=== PATIENT | female | born 1930 | race Caucasian/White ===

== ENCOUNTER 2017-12-05 10:56 | Inpatient (IN) | payer MEDICARE ==
[~2017-12-05] VITALS: Ht 144.8 cm; Wt 75.5 kg
[~2017-12-05 10:56] MED LIST: ASPI-1265 PO; ATOR20TA PO; ENOX30SY10 SQ; HYDR-3965 PO; NORCO10T PO; POTA8TAB46 PO; PROP10TA10 PO; TRIA1TAB3 PO; [UNRECOGNIZED DRUG - CODE] PO
[2017-12-05] MEDS ORDERED: furosemide 40mg/4ml inj IV ONE (11:05)
[2017-12-05] MEDS ORDERED: ipratropium/albuterol 3ml nebule NEB ONE (11:05)
[2017-12-05] MEDS ORDERED: methylPREDNISolone sod succ 125mg/2ml vial IV ONE (11:05)
[2017-12-05 11:24] LABS: BASOPHILS % (AUTO) 0.4 % (0-1); EOSINOPHILS # (AUTO) 0.2 X10'3 (0-0.9); EOSINOPHILS % (AUTO) 2.5 % (0-6); HEMATOCRIT 34.2 % (35.0-45.0); HEMOGLOBIN 11.5 g/dl (12.0-16.0); LYMPHOCYTES # (AUTO) 1.2 X10'3 (1.1-4.8); LYMPHOCYTES % (AUTO) 14.1 % (21-51); MEAN CORPUSCULAR HEMOGLOBIN 31.4 PG (27.0-31.0); MEAN CORPUSCULAR HGB CONC 33.5 % (33.0-36.5); MEAN CORPUSCULAR VOLUME 93.8 FL (78-98); MEAN PLATELET VOLUME 7.7 FL (7.4-10.4); MONOCYTES # (AUTO) 0.5 X10'3 (0-0.9); MONOCYTES % (AUTO) 5.9 % (2-12); NEUTROPHILS # (AUTO) 6.5 X10'3 (1.8-7.7); NEUTROPHILS % (AUTO) 77.1 % (42-75); PLATELET COUNT 195 X10'3 (140-440); RED BLOOD COUNT 3.64 X10'6 (4.20-5.60); RED CELL DISTRIBUTION WIDTH 12.9 % (11.5-14.5); WHITE BLOOD COUNT 8.4 X10'3 (4.5-11.0)
[2017-12-05 11:33] LABS: PROTHROMBIN TIME 10.2 SECONDS (9.0-12.0)
[2017-12-05 11:39] LABS: ALANINE AMINOTRANSFERASE 14 U/L (12-78); ALBUMIN 3.2 G/DL (3.4-5.0); ALBUMIN/GLOBULIN RATIO 0.8 (1.1-1.5); ALKALINE PHOSPHATASE 94 IU/L (46-116); ANION GAP 6 (8-16); ASPARTATE AMINO TRANSFERASE 19 U/L (10-37); BILIRUBIN,TOTAL 0.3 MG/DL (0.1-1.0); BLOOD UREA NITROGEN 24 MG/DL (7-18); BUN/CREATININE RATIO 18.6 (6.6-38.0); CALCIUM 9.2 MG/DL (8.5-10.1); CHLORIDE 109 MMOL/L (99-107); CREATININE 1.29 MG/DL (0.40-0.90); GLUCOSE 104 MG/DL (70-104); POTASSIUM 4.3 MMOL/L (3.5-5.1); SODIUM 142 MMOL/L (135-145); TOTAL CARBON DIOXIDE 26.6 MMOL/L (24-32); TOTAL PROTEIN 7.2 G/DL (6.4-8.2); eGFR 39 ML/MIN
[2017-12-05] MEDS ORDERED: magnesium hydroxide 30ml (MOM) UD suspension PO PRN (12:00)
[2017-12-05] MEDS ORDERED: acetaminophen 325mg tablet PO PRN (12:00)
[2017-12-05] MEDS ORDERED: nitroGLYCERIN 0.4mg SUBLingual tab SL PRN (12:00)
[2017-12-05] MEDS ORDERED: enoxaparin 100mg/ml syringe SUBCUT SCH (12:00)
[2017-12-05] MEDS ORDERED: ondansetron/PF 4mg/2ml inj IV PRN (12:00)
[2017-12-05] MEDS ORDERED: mag hydrox/Alum hydrox/simeth 30ml oral suspension PO PRN (12:00)
[2017-12-05] MEDS ORDERED: morphine 4 MG/ML inj SYRINge IV PRN ×2 (12:00)
[2017-12-05] MEDS: furosemide 20 MG/2 ML vial IV SCH ×2 (12:05→19:58)
[2017-12-05] MEDS ORDERED: enoxaparin 40mg/0.4ml syringe SQ ONE (12:25)
[2017-12-05] MEDS ORDERED: enoxaparin 30mg/0.3ml syringe SUBCUT ONE (12:25)
[2017-12-05] MEDS ORDERED: POTA99TA21 PO (13:28)
[2017-12-05] MEDS ORDERED: VALS160T30 PO (13:42)
[2017-12-05 14:00] VITALS: BP 158/83
[2017-12-05 14:00] LABS: CHOL/HDL RATIO 2.7 (0.00-4.99); CHOLESTEROL 188 MG/DL (0-200); HDL CHOLESTEROL 69 MG/DL (35-60); LDL CHOLESTEROL 94 MG/DL (50-100); TRIGLYCERIDES 126 MG/DL (20-135)
[2017-12-05 15:00] VITALS: BP 151/56
[2017-12-05] MEDS: HYDROcodone/acetaminophen 5mg/325mg tablet PO PRN (17:32)
[2017-12-05 19:00] VITALS: BP 151/55
[2017-12-05] MEDS: metoprolol tartrate 25mg tablet PO SCH (19:58)
[2017-12-05] MEDS ORDERED: propranolol 10mg tablet PO SCH (21:00)
[2017-12-05] MEDS ORDERED: atorvastatin 20mg tablet PO SCH (21:00)
[2017-12-05 23:00] VITALS: BP 94/51
[2017-12-06 03:00] VITALS: BP 128/47
[2017-12-06 06:00] VITALS: BP 147/56
[2017-12-06 06:33] LABS: BASOPHILS % (AUTO) 0.3 % (0-1); EOSINOPHILS % (AUTO) 0 % (0-6); HEMATOCRIT 32.6 % (35.0-45.0); LYMPHOCYTES # (AUTO) 0.9 X10'3 (1.1-4.8); LYMPHOCYTES % (AUTO) 9.1 % (21-51); MEAN CORPUSCULAR HEMOGLOBIN 31.4 PG (27.0-31.0); MEAN CORPUSCULAR HGB CONC 33.7 % (33.0-36.5); MEAN CORPUSCULAR VOLUME 93.2 FL (78-98); MEAN PLATELET VOLUME 9.3 FL (7.4-10.4); MONOCYTES # (AUTO) 0.3 X10'3 (0-0.9); MONOCYTES % (AUTO) 2.8 % (2-12); NEUTROPHILS # (AUTO) 8.5 X10'3 (1.8-7.7); NEUTROPHILS % (AUTO) 87.8 % (42-75); PLATELET COUNT 196 X10'3 (140-440); WHITE BLOOD COUNT 9.7 X10'3 (4.5-11.0)
[2017-12-06 06:44] LABS: ANION GAP 9 (8-16); BLOOD UREA NITROGEN 30 MG/DL (7-18); BUN/CREATININE RATIO 19.5 (6.6-38.0); CALCIUM 8.9 MG/DL (8.5-10.1); CHLORIDE 105 MMOL/L (99-107); CREATININE 1.54 MG/DL (0.40-0.90); GLUCOSE 139 MG/DL (70-104); SODIUM 141 MMOL/L (135-145); TOTAL CARBON DIOXIDE 26.9 MMOL/L (24-32); eGFR 32 ML/MIN
[2017-12-06] MEDS: HYDROcodone/acetaminophen 5mg/325mg tablet PO PRN (07:12)
[2017-12-06] MEDS: furosemide 20 MG/2 ML vial IV SCH (07:12)
[2017-12-06] MEDS: metoprolol tartrate 25mg tablet PO SCH (07:13)
[2017-12-06] MEDS ORDERED: aspirin 81mg tablet.DR PO SCH (08:00)
[2017-12-06] MEDS ORDERED: nitroGLYCERIN 0.4mg/hour patch TD SCH (08:00)
[2017-12-06] MEDS ORDERED: losartan 50mg tablet PO SCH (08:00)
[2017-12-06] MEDS ORDERED: POTASSIUM GLUCONATE PO SCH (08:00)
[2017-12-06 11:00] VITALS: BP 110/47
[2017-12-06] MEDS ORDERED: FURO20TA4 PO (13:45)
[2017-12-06] MEDS ORDERED: METO25TA6 PO (13:48)
[2017-12-06] MEDS ORDERED: LOSA50TA21 PO (13:48)
[2017-12-06] MEDS ORDERED: POTA20TA10 PO (15:34)
== END 2017-12-06 16:43 | disposition home or self-care (01) | DRG 291 ==
LOC: ER 10:58 → ED HOLD 11:59 → EDBEDREQ 12:26 → PCU 3S 13:51
PROVIDERS: ADMIT Internal Medicine; ATTEND Internal Medicine
DX: I13.0 Hypertensive heart and chronic kidney disease with heart failure and stage 1 through stage 4 chronic kidney disease, or unspecified chronic kidney disease (principal); I50.31 Acute diastolic (congestive) heart failure; N18.3 Chronic kidney disease, stage 3 (moderate); E78.5 Hyperlipidemia, unspecified; Z96.659 Presence of unspecified artificial knee joint; R06.89 Other abnormalities of breathing; Z91.048 Other nonmedicinal substance allergy status; Z79.899 Other long term (current) drug therapy; Z79.82 Long term (current) use of aspirin
CPT/HCPCS: 36415; 71045; 80048; 80053; 80061; 83880; 84484; 85025; 85610; 87070; 93005; 93306; 94640; 94760; 99285; J1650; J1940; J2930

== ENCOUNTER 2018-08-26 10:24 | Inpatient (IN) | payer MEDICARE ==
[~2018-08-26] VITALS: Ht 152.4 cm; Wt 69.5 kg
[~2018-08-26 10:24] MED LIST changes: +ALBU8.5H8 IH; -ASPI-1265 PO; -ENOX30SY10 SQ; +FURO20TA4 PO; +LOSA50TA64 PO; +METO25TA6 PO; -NORCO10T PO; +POTA20TA10 PO; -POTA8TAB46 PO; -PROP10TA10 PO; -TRIA1TAB3 PO; -[UNRECOGNIZED DRUG - CODE] PO
--- NOTE | 2018-08-26 10:24 | NUR ---
[facility] FLIGHT NURSES WITH C/O SOB SINCE 0800 TODAY. STATES SHE WENT TO THE HOSPITAL IN [facility] ON SUNDAY FOR CHEST PAIN. PATIENT HAS HX OF COPD AND CHF. NEB X 2 PRIOR TO ARRIVAL.
[2018-08-26] MEDS ORDERED: aspirin 81mg tab.chew PO ONE (10:35)
[2018-08-26] MEDS ORDERED: diltiazem 5mg/ml 5ml inj. IV ONE (10:35)
[2018-08-26 10:55] LABS: BASOPHILS # (AUTO) 0.1 X10'3 (0-0.2); BASOPHILS % (AUTO) 0.5 % (0-1); EOSINOPHILS # (AUTO) 0.1 X10'3 (0-0.9); EOSINOPHILS % (AUTO) 1.3 % (0-6); HEMATOCRIT 36.2 % (35.0-45.0); HEMOGLOBIN 11.9 g/dl (12.0-16.0); LYMPHOCYTES # (AUTO) 2.1 X10'3 (1.1-4.8); LYMPHOCYTES % (AUTO) 18.3 % (21-51); MEAN CORPUSCULAR HEMOGLOBIN 31.3 PG (27.0-31.0); MEAN CORPUSCULAR HGB CONC 32.8 g/dL (33.0-36.5); MEAN CORPUSCULAR VOLUME 95.4 FL (78-98); MEAN PLATELET VOLUME 7.7 FL (7.4-10.4); MONOCYTES # (AUTO) 0.9 X10'3 (0-0.9); MONOCYTES % (AUTO) 7.7 % (2-12); NEUTROPHILS # (AUTO) 8.3 X10'3 (1.8-7.7); NEUTROPHILS % (AUTO) 72.2 % (42-75); PLATELET COUNT 212 X10'3 (140-440); RED BLOOD COUNT 3.79 X10'6 (4.20-5.60); RED CELL DISTRIBUTION WIDTH 14.5 % (11.5-14.5); WHITE BLOOD COUNT 11.4 X10'3 (4.5-11.0)
[2018-08-26 11:08] LABS: ANION GAP 8 (8-16); BILIRUBIN,TOTAL 0.3 MG/DL (0.1-1.0); BLOOD UREA NITROGEN 30 MG/DL (7-18); BUN/CREATININE RATIO 20.5 (6.6-38.0); CALCIUM 9.1 MG/DL (8.5-10.1); CHLORIDE 108 MMOL/L (99-107); CREATININE 1.46 MG/DL (0.40-0.90); GLUCOSE 131 MG/DL (70-104); POTASSIUM 3.7 MMOL/L (3.5-5.1); SODIUM 144 MMOL/L (135-145); eGFR 34 ML/MIN
[2018-08-26 11:09] LABS: ALANINE AMINOTRANSFERASE 36 U/L (12-78); ALBUMIN 3.2 G/DL (3.4-5.0); ALBUMIN/GLOBULIN RATIO 0.8 (1.1-1.5); ALKALINE PHOSPHATASE 117 IU/L (46-116); ASPARTATE AMINO TRANSFERASE 24 U/L (10-37); PARTIAL THROMBOPLASTIN TIME 25 SECONDS (22-32)
[2018-08-26] MEDS ORDERED: furosemide 10 MG/1 ML 10ml inj IV ONE (11:40)
[2018-08-26] MEDS ORDERED: potassium Cl 40MEQ/NS 500ml 500 ML IV PRN ×2 (12:15)
[2018-08-26] MEDS ORDERED: magnesium 4gm in 100ml NS 100 ML IV PRN (12:15)
[2018-08-26] MEDS ORDERED: ondansetron/PF 4mg/2ml inj IV PRN (12:15)
[2018-08-26] MEDS ORDERED: magnesium 2GM in 50ml NS 50 ML IV PRN (12:15)
[2018-08-26] MEDS ORDERED: mag hydrox/Alum hydrox/simeth 30ml oral suspension PO PRN (12:15)
[2018-08-26] MEDS ORDERED: ipratropium/albuterol 3ml nebule NEB PRN (12:15)
[2018-08-26] MEDS ORDERED: magnesium hydroxide 30ml (MOM) UD suspension PO PRN (12:15)
[2018-08-26] MEDS ORDERED: acetaminophen 325mg tablet PO PRN (12:15)
[2018-08-26] MEDS ORDERED: magnesium Cl slow-release 64mg tablet PO PRN (12:15)
[2018-08-26] MEDS ORDERED: potassium Cl 20 mEq SR tablet PO PRN (12:15)
--- NOTE | 2018-08-26 12:17 | NUR ---
daughter nigel [phone]
[2018-08-26] MEDS ORDERED: POTA8TAB8 PO (12:32)
[2018-08-26] MEDS ORDERED: ALBU8.5H8 IH (12:32)
[2018-08-26] MEDS ORDERED: FURO20TA4 PO (12:32)
[2018-08-26] MEDS ORDERED: METO25TA6 PO (12:32)
[2018-08-26] MEDS ORDERED: VITA400C19 PO (12:36)
[2018-08-26] MEDS ORDERED: ASCO500C15 PO (12:36)
[2018-08-26] MEDS ORDERED: CHOL10002 PO (12:36)
[2018-08-26] MEDS ORDERED: CYA500T PO (12:36)
[2018-08-26] MEDS ORDERED: NITR0.4T SL (12:36)
[2018-08-26] MEDS ORDERED: FISH12002 PO (12:36)
[2018-08-26 13:23] LABS: D-DIMER 3.77 MG/L FEU (0-0.50)
[2018-08-26] MEDS ORDERED: levalbuterol 0.63mg/3ml nebule IH PRN (14:00)
[2018-08-26] MEDS ORDERED: ipratropium 0.5 MG/2.5ML nebule IH PRN (14:00)
--- NOTE | 2018-08-26 14:25 | NUR ---
Received patient report from ED, patient arrived to telemetry VS: BP 145/58, HR 98% RR 14 02 98% 2L NC. Patient oriented to room 3024A, Call light placed within her reach, family at patient bedside.
[2018-08-26 15:00] VITALS: BP 140/49
--- NOTE | 2018-08-26 18:32 | NUR ---
Problems reprioritized. Patient report given, questions answered & plan of care reviewed with Emigdio RN, Irma RN.
--- NOTE | 2018-08-26 18:37 | NUR ---
Problems reprioritized. Patient report given, questions answered & plan of care reviewed with Irma/Emigdio IBARRA.
--- NOTE | 2018-08-26 18:43 | NUR ---
[place] documenation: I have reviewed and agree with all interventions, assessments performed and documented by Leila IBARRA. [facility] Medication Administration: For this medication-pass time frame, all medication were reviewed, dispensed, administered and documented per hospital policy by Leila IBARRA.
[2018-08-26 19:00] VITALS: BP 145/46
--- NOTE | 2018-08-26 19:10 | NUR ---
Patient in room PCU 3025X. I have received report from Stephy RN and Leila RN and had the opportunity to ask questions and assume patient care. Patient awake for bedside report and is stable at this time. SL. Will continue to monitor closely.
[2018-08-26] MEDS ORDERED: heparin 25,000 UNIT/250ml bag 250 ML IV SCH (19:32)
[2018-08-26] MEDS ORDERED: heparin 10,000 units/1 ML INJ IV PRN ×2 (19:35→19:40)
[2018-08-26] MEDS ORDERED: heparin 10,000 units/1 ML INJ IV ONE ×2 (19:35→19:40)
[2018-08-26] MEDS ORDERED: furosemide 20 MG/2 ML vial IV SCH (20:00)
[2018-08-26] MEDS: heparin 25,000 UNIT/250ml bag 250 ML IV SCH (20:26)
[2018-08-26] MEDS: atorvastatin 20mg tablet PO SCH (20:34)
[2018-08-26] MEDS: metoprolol tartrate 25mg tablet PO SCH (20:36)
[2018-08-26 20:48] LABS: PARTIAL THROMBOPLASTIN TIME 25 SECONDS (22-32)
[2018-08-26 23:00] VITALS: BP 140/54
[2018-08-27] VITALS (7 sets, daily range): BP systolic 111–154; BP diastolic 56–79
[2018-08-27 02:57] LABS: BASOPHILS # (AUTO) 0.1 X10'3 (0-0.2); BASOPHILS % (AUTO) 1.3 % (0-1); EOSINOPHILS # (AUTO) 0.1 X10'3 (0-0.9); EOSINOPHILS % (AUTO) 1.4 % (0-6); HEMATOCRIT 32.6 % (35.0-45.0); HEMOGLOBIN 10.9 g/dl (12.0-16.0); LYMPHOCYTES % (AUTO) 21.2 % (21-51); MEAN CORPUSCULAR HEMOGLOBIN 31.4 PG (27.0-31.0); MEAN CORPUSCULAR HGB CONC 33.6 g/dL (33.0-36.5); MEAN CORPUSCULAR VOLUME 93.5 FL (78-98); MEAN PLATELET VOLUME 7.9 FL (7.4-10.4); MONOCYTES # (AUTO) 0.8 X10'3 (0-0.9); MONOCYTES % (AUTO) 8.5 % (2-12); NEUTROPHILS # (AUTO) 6.2 X10'3 (1.8-7.7); NEUTROPHILS % (AUTO) 67.6 % (42-75); PLATELET COUNT 207 X10'3 (140-440); RED BLOOD COUNT 3.48 X10'6 (4.20-5.60); RED CELL DISTRIBUTION WIDTH 14.4 % (11.5-14.5); WHITE BLOOD COUNT 9.2 X10'3 (4.5-11.0)
[2018-08-27 03:11] LABS: ALANINE AMINOTRANSFERASE 29 U/L (12-78); ALBUMIN 2.8 G/DL (3.4-5.0); ALBUMIN/GLOBULIN RATIO 0.8 (1.1-1.5); ALKALINE PHOSPHATASE 104 IU/L (46-116); ANION GAP 9 (8-16); ASPARTATE AMINO TRANSFERASE 20 U/L (10-37); BILIRUBIN,TOTAL 0.5 MG/DL (0.1-1.0); BLOOD UREA NITROGEN 24 MG/DL (7-18); BUN/CREATININE RATIO 16.8 (6.6-38.0); CALCIUM 8.6 MG/DL (8.5-10.1); CHLORIDE 109 MMOL/L (99-107); CHOL/HDL RATIO 2.3 (0.00-4.99); CHOLESTEROL 181 MG/DL (0-200); CREATININE 1.43 MG/DL (0.40-0.90); GLUCOSE 106 MG/DL (70-104); HDL CHOLESTEROL 80 MG/DL (35-60); LDL CHOLESTEROL 94 MG/DL (50-100); MAGNESIUM 1.8 MG/DL (1.5-2.4); POTASSIUM 3.4 MMOL/L (3.5-5.1); SODIUM 146 MMOL/L (135-145); TOTAL CARBON DIOXIDE 28.4 MMOL/L (24-32); TOTAL PROTEIN 6.4 G/DL (6.4-8.2); TRIGLYCERIDES 36 MG/DL (20-135); eGFR 35 ML/MIN
--- NOTE | 2018-08-27 03:45 | NUR ---
Held Heparin infusion at 0345 pending 6 hour PTT result. Patient was receiving 1300 units/hr. Will continue to monitor patient closely. Addendum: 08/27/18 at 0437 by Irma oTth RN PTT 145, gtt will be held for [address] Mas notified of result
[2018-08-27] MEDS: potassium Cl 20 mEq SR tablet PO PRN ×3 (04:09→14:39)
[2018-08-27] MEDS: heparin 25,000 UNIT/250ml bag 250 ML IV SCH (05:43)
--- NOTE | 2018-08-27 06:12 | NUR ---
[place]ee documentation: I have reviewed and agree with all interventions, assessments performed and documented by Emigdio IBARRA. [place] Medication Administration: For this medication-pass time frame, all medication were reviewed, dispensed, administered and documented per hospital policy by Emigdio IBARRA.
--- NOTE | 2018-08-27 06:17 | NUR ---
Problems reprioritized. Patient report given, questions answered & plan of care reviewed with FRED Keyes and FRED Dee.
--- NOTE | 2018-08-27 06:47 | NUR ---
Patient in room PCU 3024. I have received report from Irma/Emigdio IBARRA and had the opportunity to ask questions and assume patient care. Patient awake in bed and resting comfortably. In no acute distress.
--- NOTE | 2018-08-27 06:47 | NUR ---
Patient in room PCU 3024. I have received report from Emigdio RN/Irma RN and had the opportunity to ask questions and assume patient care.
--- NOTE | 2018-08-27 07:15 | NUR ---
Paged Dr. Arreguin PAGER ID: [phone] MESSAGE: Leila Eder [phone]. Martita Jon [phone]. Patient is having nuclear med scan of lungs. Can we stop Heparin drip for about 45 minutes while scan is being performed?
--- NOTE | 2018-08-27 07:44 | NUR ---
Patient to nuclear medicine for V/Q scan.
[2018-08-27] MEDS ORDERED: non-formulary drug (Ascorbic Acid (Vitamin C) 1 CAP) PO SCH (08:00)
[2018-08-27] MEDS: K and/or MAG REPLACEMENT MC SCH (08:00)
[2018-08-27] MEDS ORDERED: enoxaparin 40mg/0.4ml syringe SQ SCH (08:00)
[2018-08-27] MEDS ORDERED: non-formulary drug (Cholecalciferol (Vitamin D3) (Vitamin D3) 1 TAB) PO SCH (08:00)
[2018-08-27] MEDS: cyanocobalamin 500mcg tablet PO SCH (08:00)
[2018-08-27] MEDS ORDERED: non-formulary drug (Fish Oil/Borage/Flax/Om3,6,9#1 (Omega 3-6-9 1,200 mg Softgel) 1 CAP) PO SCH (08:00)
[2018-08-27] MEDS: furosemide 20 MG/2 ML vial IV SCH (09:03)
[2018-08-27] MEDS: omega-3 acid ethyl esters 1GM capsule PO SCH (09:04)
[2018-08-27] MEDS: vitamin D (cholecalciferol) 1,000 unit tablet PO SCH (09:05)
[2018-08-27] MEDS: vitamin E 400 unit capsule PO SCH (09:06)
[2018-08-27] MEDS: ascorbic acid 500mg tablet PO SCH (09:07)
[2018-08-27] MEDS: metoprolol tartrate 25mg tablet PO SCH ×2 (09:10→19:31)
--- NOTE | 2018-08-27 10:07 | NUR ---
Malnutrition consult: Pt admit w/ SOB found to have pulmonary HTN and decreasing EF; hx CHF EF now 60%, COPD. Pt PO 50% avg heart healthy meals good given age, no significant weakness, no edema/wounds, and no significant wt loss hx present. At this time pt does not qualify for malnutrition. Ensure enlive TIDWM added for additional protein/kcal needs at this time; notified. Addendum: 08/27/18 at [address] Amended: Links added.
--- NOTE | 2018-08-27 12:00 | NUR ---
Administered Vit. B12 PO 1000mcg, 2 patient identifiers used, computer did not save medication administration.
[2018-08-27] MEDS ORDERED: lactose-reduced food (Ensure Enlive) - 237ml bottle PO SCH (13:00)
--- NOTE | 2018-08-27 13:03 | NUR ---
Paged Dr. Arreguin PAGER ID: [phone] MESSAGE: Leila Eder [phone]. AlmaMartita krishna [phone]. FYI, results of V/Q scan are available.
--- NOTE | 2018-08-27 13:22 | NUR ---
New Order Per Dr. Arreguin Discontinue Heparin set. Discontinue PTT lab draws
--- NOTE | 2018-08-27 13:47 | NUR ---
Paged Dr. Arreguin PAGER ID: [phone] MESSAGE: Leila Eder [phone]. Danay, Mary [id number]. Patient is complaining of seasonal allergies. She has been taking something similar to arline. Would like to know if you can order something for her. Thanks
[2018-08-27] MEDS: cetirizine 10mg tablet PO SCH (14:39)
--- NOTE | 2018-08-27 18:14 | NUR ---
Patient in room U 3024a. I have received report from FRED Ramirez and had the opportunity to ask questions and assume patient care. Patient awake for bedside report. Stable at this time. Will continue to monitor closely. Addendum: 08/27/18 at 1817 by Edwige Bell RN Received report from FRED Keyes and FRED Dee, not FRED Ramirez.
--- NOTE | 2018-08-27 18:23 | NUR ---
Problems reprioritized. Patient report given, questions answered & plan of care reviewed with Emigdio IBARRA/Irma IBARRA.
--- NOTE | 2018-08-27 18:23 | NUR ---
Problems reprioritized. Patient report given, questions answered & plan of care reviewed with Emigdio/Irma IBARRA.
[2018-08-27] MEDS: azelastine Nasal Spray bottle NS SCH (19:29)
[2018-08-27] MEDS ORDERED: HYDROcodone/acetaminophen 5mg/325mg tablet PO PRN (21:00)
[2018-08-27] MEDS: atorvastatin 20mg tablet PO SCH (21:28)
[2018-08-28 03:00] VITALS: BP 146/66
[2018-08-28 05:10] LABS: BASOPHILS # (AUTO) 0.1 X10'3 (0-0.2); BASOPHILS % (AUTO) 0.7 % (0-1); EOSINOPHILS # (AUTO) 0.2 X10'3 (0-0.9); HEMATOCRIT 33.4 % (35.0-45.0); HEMOGLOBIN 11.1 g/dl (12.0-16.0); LYMPHOCYTES # (AUTO) 2.1 X10'3 (1.1-4.8); LYMPHOCYTES % (AUTO) 27.2 % (21-51); MEAN CORPUSCULAR HEMOGLOBIN 31.5 PG (27.0-31.0); MEAN CORPUSCULAR HGB CONC 33.4 g/dL (33.0-36.5); MEAN CORPUSCULAR VOLUME 94.4 FL (78-98); MEAN PLATELET VOLUME 7.9 FL (7.4-10.4); MONOCYTES # (AUTO) 0.8 X10'3 (0-0.9); MONOCYTES % (AUTO) 10.1 % (2-12); NEUTROPHILS # (AUTO) 4.7 X10'3 (1.8-7.7); PLATELET COUNT 209 X10'3 (140-440); RED BLOOD COUNT 3.54 X10'6 (4.20-5.60); RED CELL DISTRIBUTION WIDTH 14.3 % (11.5-14.5); WHITE BLOOD COUNT 7.8 X10'3 (4.5-11.0)
[2018-08-28 05:24] LABS: ALANINE AMINOTRANSFERASE 26 U/L (12-78); ALBUMIN 2.8 G/DL (3.4-5.0); ALBUMIN/GLOBULIN RATIO 0.8 (1.1-1.5); ALKALINE PHOSPHATASE 100 IU/L (46-116); ANION GAP 5 (8-16); ASPARTATE AMINO TRANSFERASE 19 U/L (10-37); BILIRUBIN,TOTAL 0.5 MG/DL (0.1-1.0); BLOOD UREA NITROGEN 29 MG/DL (7-18); BUN/CREATININE RATIO 22.1 (6.6-38.0); CALCIUM 9.2 MG/DL (8.5-10.1); CHLORIDE 109 MMOL/L (99-107); CREATININE 1.31 MG/DL (0.40-0.90); GLUCOSE 99 MG/DL (70-104); MAGNESIUM 2.1 MG/DL (1.5-2.4); POTASSIUM 3.9 MMOL/L (3.5-5.1); SODIUM 142 MMOL/L (135-145); TOTAL CARBON DIOXIDE 28.4 MMOL/L (24-32); TOTAL PROTEIN 6.4 G/DL (6.4-8.2); eGFR 38 ML/MIN
--- NOTE | 2018-08-28 06:31 | NUR ---
Problems reprioritized. Patient report given, questions answered & plan of care reviewed with FRED Thakkar and FRED Espinosa.
--- NOTE | 2018-08-28 06:32 | NUR ---
Patient in room PCU 3024. I have received report from Irma IBARRA and had the opportunity to ask questions and assume patient care.
[2018-08-28 06:41] VITALS: BP 154/64
[2018-08-28] MEDS: ascorbic acid 500mg tablet PO SCH (07:33)
[2018-08-28] MEDS: metoprolol tartrate 25mg tablet PO SCH (07:33)
[2018-08-28] MEDS: vitamin D (cholecalciferol) 1,000 unit tablet PO SCH (07:33)
[2018-08-28] MEDS: cyanocobalamin 500mcg tablet PO SCH (07:33)
[2018-08-28] MEDS: omega-3 acid ethyl esters 1GM capsule PO SCH (07:33)
[2018-08-28] MEDS: cetirizine 10mg tablet PO SCH (07:33)
[2018-08-28] MEDS: furosemide 20 MG/2 ML vial IV SCH (07:34)
[2018-08-28] MEDS: vitamin E 400 unit capsule PO SCH (07:34)
[2018-08-28] MEDS: azelastine Nasal Spray bottle NS SCH (07:35)
[2018-08-28 08:00] VITALS: BP_SYST 122; BP_SYST 148; BP_DIAS 63; BP_DIAS 69
[2018-08-28] MEDS: K and/or MAG REPLACEMENT MC SCH (08:00)
[2018-08-28] MEDS ORDERED: potassium Cl 20 mEq SR tablet PO STA (08:07)
[2018-08-28] MEDS ORDERED: furosemide 20MG tablet PO ONE (08:10)
[2018-08-28] MEDS ORDERED: LEVA15HF4 INH (11:08)
[2018-08-28] MEDS ORDERED: APIX5TAB3 PO (11:08)
--- NOTE | 2018-08-28 13:19 | NUR ---
Reviewed discharged instructions with patient. Provided patient education regards to new prescriptions and signs and symptoms as to when to return. Doctors appointment scheduled for Sep 02 1049. Meds delivered via [facility] bedside. Tele monitor discontinued. VS within normal limits, alert and oriented. Patient safely discharged out to vehicle and accompanied by family member.
== END 2018-08-28 14:05 | disposition home or self-care (01) | DRG 280 ==
LOC: ER 10:25 → PCU 3S 14:26 → CMPBEDREQ 19:35
PROVIDERS: ADMIT Family Medicine; ATTEND Family Medicine
PROC: CB121ZZ Planar Nuclear Medicine Imaging of Lungs and Bronchi using Technetium 99m (Tc-99m) (ICD-10-PCS; principal; 2018-08-27)
DX: I21.A1 Myocardial infarction type 2 (principal); I50.33 Acute on chronic diastolic (congestive) heart failure; J96.00 Acute respiratory failure, unspecified whether with hypoxia or hypercapnia; I13.0 Hypertensive heart and chronic kidney disease with heart failure and stage 1 through stage 4 chronic kidney disease, or unspecified chronic kidney disease; I47.1 Supraventricular tachycardia; N17.9 Acute kidney failure, unspecified; N18.9 Chronic kidney disease, unspecified; I35.0 Nonrheumatic aortic (valve) stenosis; E78.5 Hyperlipidemia, unspecified; I05.0 Rheumatic mitral stenosis; E87.6 Hypokalemia; H35.30 Unspecified macular degeneration; I25.10 Atherosclerotic heart disease of native coronary artery without angina pectoris; Z96.652 Presence of left artificial knee joint; G89.29 Other chronic pain; I48.91 Unspecified atrial fibrillation; J44.9 Chronic obstructive pulmonary disease, unspecified; Z79.899 Other long term (current) drug therapy; I25.2 Old myocardial infarction; Z91.048 Other nonmedicinal substance allergy status; Z82.49 Family history of ischemic heart disease and other diseases of the circulatory system
CPT/HCPCS: 36415; 71045; 78582; 80053; 80061; 83735; 83880; 84484; 85025; 85379; 85610; 85730; 87070; 93005; 94760; 96374; 96375; 99285; A9539; A9540; G0378; J1644; J1940; J3490; J7614